=== PATIENT | male | born 1980 | race African-American/Black ===

== ENCOUNTER 2021-01-01 11:19 | Inpatient (IN) | payer MEDICARE, MEDICAID ==
[2021-01-01] MEDS ORDERED: Fentanyl 100 MCG/2 ML VIAL ONE ×2 (12:32→14:52)
[2021-01-01] MEDS ORDERED: Ondansetron PF 4 MG/2 ML Vial ONE (12:35)
[2021-01-01 12:54] LABS: #Eosinphils 0.1 thou/uL (0.0-0.7); #Lymphocytes 1.5 thou/uL (1.20-3.40); #Monocytes 1.3 thou/uL (0.11-0.59); #Neutrophils 9.6 thou/uL (1.40-6.50); %Basophils 0.3 % (0.0-1.0); %Eosinophils 0.4 % (0.0-10.0); %Lymphocytes 12.1 % (21.0-51.0); %Monocytes 10.7 % (0.0-10.0); %Neutrophils 76.5 % (42.0-75.0); Mean Corpuscular HGB CONC 33.1 g/dL (32.0-36.0); Mean Corpuscular Hemoglobin 30.8 pg (27.0-31.0); Mean Corpuscular Volume 93.1 fL (78.0-98.0); Mean Platelet Volume 8.6 fL (7.4-10.4); Platelet Count 276 thou/uL (130-400); RBC Distribution Width 12.4 % (11.5-14.5); White Blood Cell (WBC) Count 12.5 thou/uL (4.8-10.8)
[2021-01-01 13:23] LABS: PTT 29.7 sec (22.9-36.1); Prothrombin Time 13.2 sec (12.0-14.7)
[2021-01-01 13:28] LABS: ALT (SGPT) 46 U/L (8-55); AST (SGOT) 35 U/L (5-34); Albumin 4.5 g/dL (3.5-5.0); Alkaline Phosphatase 97 U/L (40-110); Anion Gap 13 mmol/L (10-20); BUN (Urea Nitrogen) 7 mg/dL (8.9-20.6); Bilirubin, Total 0.8 mg/dL (0.2-1.2); Calc. Creatinine Clearance 0 mL/min (70-130); Calcium 10.4 mg/dL (7.8-10.44); Carbon Dioxide 28 mmol/L (22-29); Chloride 101 mmol/L (98-107); Globulin 4.1 g/dL (2.4-3.5); Glucose 110 mg/dL (70-105); Potassium 4.2 mmol/L (3.5-5.1); Protein, Total 8.6 g/dL (6.0-8.3); Sodium 138 mmol/L (136-145)
[2021-01-01] MEDS ORDERED: Ketorolac Tromethamine 30 MG/ML VIAL ONE (14:52)
[2021-01-01] MEDS ORDERED: Lidocaine 1% PF 5 ML VIAL ONE (14:52)
[2021-01-01] MEDS ORDERED: Ondansetron ODT 4 MG TAB SL PRN (17:15)
[2021-01-01] MEDS ORDERED: Ondansetron PF 4 MG/2 ML Vial IVP PRN (17:15)
[2021-01-01] MEDS ORDERED: Acetaminophen 325 MG TAB PO PRN (17:15)
[2021-01-01] MEDS: Morphine 4 MG/ML VIAL SLOW IVP PRN (18:10)
[2021-01-01 18:16] VITALS: BMI 21.9
[2021-01-02 00:36] LABS: SARS-CoV-2 PCR by NAA Not Detected (NotDetected)
[2021-01-02] MEDS: Morphine 4 MG/ML VIAL SLOW IVP PRN ×2 (04:16→10:54)
[2021-01-02 06:07] LABS: #Eosinphils 0.1 thou/uL (0.0-0.7); #Monocytes 0.9 thou/uL (0.11-0.59); %Basophils 0.1 % (0.0-1.0); %Eosinophils 1.1 % (0.0-10.0); %Lymphocytes 15.2 % (21.0-51.0); %Neutrophils 76.5 % (42.0-75.0); Hemoglobin 15.2 g/dL (14.0-18.0); Mean Corpuscular Hemoglobin 31.1 pg (27.0-31.0); Mean Corpuscular Volume 94.2 fL (78.0-98.0); Mean Platelet Volume 8.5 fL (7.4-10.4); Platelet Count 228 thou/uL (130-400); RBC Distribution Width 12.4 % (11.5-14.5); Red Blood Cell (RBC) Count 4.88 mill/uL (4.70-6.10); White Blood Cell (WBC) Count 13.1 thou/uL (4.8-10.8)
[2021-01-02 06:39] LABS: Anion Gap 13 mmol/L (10-20); BUN (Urea Nitrogen) 7 mg/dL (8.9-20.6); Calc. Creatinine Clearance 106 mL/min (70-130); Calcium 8.8 mg/dL (7.8-10.44); Carbon Dioxide 23 mmol/L (22-29); Chloride 102 mmol/L (98-107); Glucose 98 mg/dL (70-105); Potassium 3.6 mmol/L (3.5-5.1); Sodium 134 mmol/L (136-145)
[2021-01-02 11:33] LABS: HBCM Index 0.09 S/CO (0-0.79); HIV (1/2) Antibody/Antigen Non-Reactive (NonReactive); HIV 1/2 INDEX 0.07 S/CO (<1.00); Hep A IgM AB Non-Reactive (NonReactive); Hep A IgM S/CO 0.12 S/CO (0-0.79); Hep B Surf Ag Non-Reactive S/CO (NonReactive); Hep C IgG Ab Non-Reactive (NonReactive); Hep C Index 0.05 S/CO (0-0.79); Hepatitis B Core IgM Abs Non-Reactive (NonReactive)
[2021-01-02 13:17] LABS: MONO NEGATIVE CONTROL ZONE White (Negative) (White); MONO POSITIVE CONTROL Pink Line (Positive) (PINK/RED)
[2021-01-02 13:18] LABS: Mononucleosis NEGATIVE (NEGATIVE)
[2021-01-02] MEDS: HYDROcodone/Acetaminophen 5/325 mg Tablet PO PRN ×2 (13:49→17:49)
[2021-01-02] MEDS: Nicotine 14 MG PATCH TD PRN (13:50)
[2021-01-03] MEDS: HYDROcodone/Acetaminophen 5/325 mg Tablet PO PRN ×4 (00:18→17:56)
[2021-01-03 08:14] LABS: #Basophils 0.1 thou/uL (0.0-0.2); #Eosinphils 0.2 thou/uL (0.0-0.7); #Lymphocytes 1.7 thou/uL (1.20-3.40); #Monocytes 1.1 thou/uL (0.11-0.59); #Neutrophils 6.4 thou/uL (1.40-6.50); %Basophils 0.7 % (0.0-1.0); %Eosinophils 1.7 % (0.0-10.0); %Lymphocytes 18.5 % (21.0-51.0); %Monocytes 11.7 % (0.0-10.0); %Neutrophils 67.5 % (42.0-75.0); Hemoglobin 15.8 g/dL (14.0-18.0); Mean Corpuscular HGB CONC 33.7 g/dL (32.0-36.0); Mean Corpuscular Hemoglobin 31.4 pg (27.0-31.0); Mean Corpuscular Volume 93.3 fL (78.0-98.0); Platelet Count 236 thou/uL (130-400); RBC Distribution Width 12.3 % (11.5-14.5); Red Blood Cell (RBC) Count 5.01 mill/uL (4.70-6.10); White Blood Cell (WBC) Count 9.4 thou/uL (4.8-10.8)
[2021-01-03 08:30] LABS: Anion Gap 13 mmol/L (10-20); BUN (Urea Nitrogen) 9 mg/dL (8.9-20.6); Calc. Creatinine Clearance 99 mL/min (70-130); Calcium 8.9 mg/dL (7.8-10.44); Carbon Dioxide 26 mmol/L (22-29); Chloride 101 mmol/L (98-107); Glucose 92 mg/dL (70-105); Potassium 3.8 mmol/L (3.5-5.1); Sodium 136 mmol/L (136-145)
[2021-01-04] MEDS: HYDROcodone/Acetaminophen 5/325 mg Tablet PO PRN ×5 (00:48→22:42)
[2021-01-04 06:16] LABS: #Basophils 0.1 thou/uL (0.0-0.2); #Eosinphils 0.2 thou/uL (0.0-0.7); #Lymphocytes 1.8 thou/uL (1.20-3.40); #Monocytes 1.2 thou/uL (0.11-0.59); %Basophils 0.6 % (0.0-1.0); %Eosinophils 1.7 % (0.0-10.0); %Monocytes 12.9 % (0.0-10.0); %Neutrophils 64.8 % (42.0-75.0); Hemoglobin 15.6 g/dL (14.0-18.0); Mean Corpuscular HGB CONC 32.8 g/dL (32.0-36.0); Mean Corpuscular Hemoglobin 30.4 pg (27.0-31.0); Mean Corpuscular Volume 92.5 fL (78.0-98.0); Platelet Count 285 thou/uL (130-400); RBC Distribution Width 12.3 % (11.5-14.5); Red Blood Cell (RBC) Count 5.12 mill/uL (4.70-6.10); White Blood Cell (WBC) Count 9.2 thou/uL (4.8-10.8)
[2021-01-04 06:33] LABS: Anion Gap 12 mmol/L (10-20); BUN (Urea Nitrogen) 9 mg/dL (8.9-20.6); Calc. Creatinine Clearance 95 mL/min (70-130); Calcium 9.2 mg/dL (7.8-10.44); Carbon Dioxide 27 mmol/L (22-29); Chloride 101 mmol/L (98-107); Glucose 96 mg/dL (70-105); Potassium 3.9 mmol/L (3.5-5.1); Sodium 136 mmol/L (136-145)
[2021-01-04] MEDS ORDERED: Iopamidol-370 76% 500 ML 1 ML ONE (10:03)
[2021-01-05] MEDS: HYDROcodone/Acetaminophen 5/325 mg Tablet PO PRN ×2 (03:11→22:15)
[2021-01-05] MEDS: Sodium Chloride 0.9% 1,000 ML IV SCH ×2 (10:50→23:42)
[2021-01-05] MEDS: Morphine 4 MG/ML VIAL SLOW IVP PRN ×2 (10:51→18:10)
[2021-01-05] MEDS: Nicotine 14 MG PATCH TD PRN (14:47)
[2021-01-06] MEDS: Morphine 4 MG/ML VIAL SLOW IVP PRN (03:45)
[2021-01-06] MEDS: HYDROcodone/Acetaminophen 5/325 mg Tablet PO PRN (06:19)
[2021-01-06] MEDS ORDERED: EPINEPHrine 1 MG/ML AMP ONE (07:19)
[2021-01-06] MEDS ORDERED: Bupivacaine PF 0.5% 30 ML VIAL ONE (07:19)
[2021-01-06] MEDS ORDERED: Ropivacaine 0.2% HCl/PF 0 ML ONE (07:19)
[2021-01-06] MEDS ORDERED: Phenylephrine 10 MG/ML VIAL ONE (07:57)
[2021-01-06] MEDS ORDERED: Fentanyl 250 MCG/5 ML VIAL ONE (07:57)
[2021-01-06] MEDS ORDERED: Talc 30 GM AEROSOL CAN ONE (08:01)
[2021-01-06] MEDS ORDERED: Lidocaine 1% PF 5 ML VIAL ONE (08:02)
[2021-01-06] MEDS ORDERED: Glycopyrrolate 0.2 MG/ML 5 ML SYRINGE ONE (08:02)
[2021-01-06] MEDS ORDERED: Dexamethasone 20 MG/5 ML VIAL ONE (08:02)
[2021-01-06] MEDS ORDERED: Ondansetron PF 4 MG/2 ML Vial ONE (08:02)
[2021-01-06] MEDS ORDERED: Rocuronium Bromide 10 MG/ML (10ML VIAL) ONE (08:02)
[2021-01-06] MEDS ORDERED: PROPOFOL 200 MG/20 ML VIAL ONE (08:02)
[2021-01-06] MEDS ORDERED: PHENYLEPHRINE-NS 100 MCG/ML 10 ML SYRINGE ONE (08:02)
[2021-01-06] MEDS ORDERED: Promethazine HCl 25 MG/ML VIAL SLOW IVP PRN (10:04)
[2021-01-06] MEDS ORDERED: Ondansetron HCl/PF 4 MG/2 ML Vial IVP PRN (10:04)
[2021-01-06] MEDS ORDERED: HYDROmorphone 2 MG/ML VIAL SLOW IVP PRN (10:04)
[2021-01-06] MEDS ORDERED: Promethazine HCl 25 MG/ML VIAL IM PRN (10:04)
[2021-01-06] MEDS ORDERED: Ketorolac Tromethamine 30 MG/ML VIAL ONE (10:07)
[2021-01-06] MEDS ORDERED: Fentanyl 100 MCG/2 ML VIAL ONE ×2 (10:08→10:21)
[2021-01-06] MEDS ORDERED: Ondansetron PF 4 MG/2 ML Vial IVP PRN (10:11)
[2021-01-06] MEDS ORDERED: HYDROcodone/Acetaminophen 5/325 mg Tablet PO PRN (10:11)
[2021-01-06] MEDS: Ketorolac Tromethamine 30 MG/ML VIAL IVP SCH ×2 (15:33→21:51)
[2021-01-06] MEDS: Nicotine 14 MG PATCH TD PRN (15:34)
[2021-01-07] MEDS: HYDROcodone/Acetaminophen 5/325 mg Tablet PO PRN (02:41)
[2021-01-07] MEDS: Ketorolac Tromethamine 30 MG/ML VIAL IVP SCH ×4 (05:03→22:11)
[2021-01-08] MEDS: Ketorolac Tromethamine 30 MG/ML VIAL IVP SCH ×2 (04:08→10:10)
[2021-01-08] MEDS: HYDROcodone/Acetaminophen 5/325 mg Tablet PO PRN (07:52)
[2021-01-08 16:34] VITALS: BP 129/77; TEMP 98.1
[2021-01-09 11:14] LABS: Albumin 3.1 g/dL (2.9-4.4); Alpha 1 0.2 g/dL (0.0-0.4); Alpha 2 1.1 g/dL (0.4-1.0); Gamma 0.9 g/dL (0.4-1.8); Globulin, Total 3.2 g/dL (2.2-3.9); M-Spike Not Observed g/dL (Not Observed)
== END 2021-01-08 16:54 | disposition home or self-care (01) | DRG 165 ==
LOC: ERS 11:19 → T4-B 16:14 → OBSVTOIN 01-02 10:56 → T4-A 01-08 04:57
PROVIDERS: ADMIT Internal Medicine; ATTEND Internal Medicine
PROC: 0W9B30Z Drainage of Left Pleural Cavity with Drainage Device, Percutaneous Approach (ICD-10-PCS; 2021-01-02)
PROC: 0BBL4ZZ Excision of Left Lung, Percutaneous Endoscopic Approach (ICD-10-PCS; principal; 2021-01-06)
PROC: 3E0L4GC Introduction of Other Therapeutic Substance into Pleural Cavity, Percutaneous Endoscopic Approach (ICD-10-PCS; 2021-01-06)
DX: J93.0 Spontaneous tension pneumothorax (principal); Z20.822 Contact with and (suspected) exposure to COVID-19; F17.210 Nicotine dependence, cigarettes, uncomplicated; K11.23 Chronic sialoadenitis; J93.82 Other air leak; J43.9 Emphysema, unspecified
CPT/HCPCS: 36415; 70491; 71045; 71046; 80048; 80053; 80074; 82103; 84165; 84484; 85025; 85610; 85730; 86308; 87389; 88305; 88341; 88342; 93005; 96374; 96375; 96376; G0378; J0171; J1100; J1885; J2270; J2370; J2405; J2704; J2795; J3010; Q9967; S0020; U0003; U0005

== ENCOUNTER 2021-01-17 13:04 | Outpatient (CLI) | payer MEDICARE, MEDICAID | END 2021-01-17 13:05 | disposition home or self-care (01) | LOC: RAD 13:04 | PROVIDERS: ATTEND Thoracic Surgery (Cardiothoracic Vascular Surgery) | DX: J93.83 Other pneumothorax (principal); J92.9 Pleural plaque without asbestos; J43.9 Emphysema, unspecified; J98.4 Other disorders of lung; Z98.890 Other specified postprocedural states | CPT/HCPCS: 71046 ==

== ENCOUNTER 2023-03-24 14:06 | Emergency (ER) | payer MEDICAID, MEDICARE, OTHER ==
[2023-03-24] MEDS ORDERED: Cyclobenzaprine 10 MG TAB ONE ×2 (14:31→14:37)
[2023-03-24] MEDS ORDERED: Ketorolac Tromethamine 30 MG/ML VIAL ONE ×2 (14:31→14:37)
[2023-03-24] MEDS ORDERED: HYDROcodone/Acetaminophen 10/325 mg Tablet ONE ×2 (14:31→14:36)
== END 2023-03-24 15:16 | disposition home or self-care (01) ==
LOC: ERS 14:06
DX: S39.012A Strain of muscle, fascia and tendon of lower back, initial encounter (principal); F17.210 Nicotine dependence, cigarettes, uncomplicated; X50.0XXA Overexertion from strenuous movement or load, initial encounter
CPT/HCPCS: 72100; 96372; J1885

== ENCOUNTER 2023-05-29 09:12 | Outpatient (CLI) | payer OTHER | END 2023-05-29 09:13 | disposition home or self-care (01) | LOC: ULT 09:12 | PROVIDERS: ATTEND Nurse Practitioner Family | DX: R59.1 Generalized enlarged lymph nodes (principal) | CPT/HCPCS: 76536 ==

== ENCOUNTER 2024-04-27 08:53 | Outpatient (CLI) | payer OTHER | END 2024-04-27 08:54 | disposition home or self-care (01) | LOC: BICULT 08:53 | PROVIDERS: ATTEND Nurse Practitioner Family | DX: R74.8 Abnormal levels of other serum enzymes (principal); K76.0 Fatty (change of) liver, not elsewhere classified | CPT/HCPCS: 76700 ==

== ENCOUNTER 2025-03-24 15:00 | Outpatient (CLI) | payer OTHER | END 2025-03-24 15:01 | disposition home or self-care (01) | LOC: BICRAD 15:00 | PROVIDERS: ATTEND Nurse Practitioner Family | DX: M53.3 Sacrococcygeal disorders, not elsewhere classified (principal); M54.59 Other low back pain; M54.31 Sciatica, right side | CPT/HCPCS: 72100; 72220 ==